=== PATIENT | female | born 1985 | race Two or more races ===

== ENCOUNTER 2023-11-25 10:25 | Observation (INO) | payer MEDICAID ==
[2023-11-25 11:22] LABS: Alanine Aminotransferase 28 U/L (7-40); Albumin 4.2 g/dL (3.2-4.8); Alkaline Phosphatase 86 U/L (46-116); Anion Gap 5 (5-15); Aspartate Aminotransferase 15 U/L (13-40); BUN/Creatinine Ratio 9.8 (10.0-20.0); Blood Urea Nitrogen 6 mg/dL (9-23); Calcium 9.5 mg/dL (8.7-10.4); Carbon Dioxide 24 mmol/L (20-30); Chloride 108 mmol/L (98-107); Glucose 92 mg/dL (74-106); Potassium 3.6 mmol/L (3.5-5.1); Sodium 137 mmol/L (136-145); Uric Acid 3.6 mg/dL (3.1-7.8)
[2023-11-25 11:23] LABS: Bilirubin, Total 0.5 mg/dL (0.2-1.0); Total Protein 6.9 g/dL (5.7-8.2)
[2023-11-25 11:25] LABS: INR 0.96 (0.9-1.15); Partial Thromboplastin Time 26.5 SEC (24.5-34.5); Prothrombin Time 10.2 sec (9.3-11.8)
[2023-11-25 11:26] LABS: Basophils # (auto) 0 10 ^3/uL (0-0.2); Basophils % (auto) 0.3 % (0.0-2.0); Eosinophils # (auto) 0 10 ^3/uL (0-0.8); Eosinophils % (auto) 0.3 % (0.0-7.0); Hemoglobin 12.6 g/dL (12.2-16.2); Lymphocytes # (auto) 1.9 10 ^3/uL (0.4-5.4); Lymphocytes % (auto) 20.1 % (10.0-50.0); Mean Corpuscular Hemoglobin 30.1 pg (28.0-32.0); Mean Corpuscular Hgb Conc. 34.1 g/dL (32.0-36.0); Mean Corpuscular Volume 88.1 fL (80.0-100.0); Monocytes # (auto) 0.4 10 ^3/uL (0-1.3); Monocytes % (auto) 4.4 % (0.0-12.0); Neutrophils % (auto) 74.9 % (37.0-80.0); Platelet Count (auto) 198 10^3/uL (140-450); Red Cell Distribution Width 15.2 % (11.8-14.3); White Blood Cell 9.3 10^3/uL (4.4-10.8)
[2023-11-25 12:16] LABS: Urine Bacteria FEW /hpf (None Seen); Urine Blood Negative /uL (Negative); Urine Clarity Turbid (Clear); Urine Color Light-Yellow (Yellow); Urine Mucus FEW (None Seen); Urine Protein, UAD Negative (Negative); Urine Specific Gravity 1.016 (1.001-1.035); Urine Urobilinogen Normal (Negative); Urine WBC 4 /hpf (0 - 5); Urine pH 6.5 (5.0-9.0)
[2023-11-25 13:03] LABS: Protein, Urine 11.4 mg/dL (0.0-11.9)
[2023-11-25 13:06] LABS: Creatinine, Urine 77.88 mg/dL (30.0-125.0); Urine Protein/Creatinine Ratio 0.15
== END 2023-11-25 13:30 | disposition home or self-care (01) ==
LOC: UNDOADMOB 10:25 → LDRP 10:25 → UNDODISOB 13:30
PROVIDERS: ADMIT Obstetrics & Gynecology; ATTEND Obstetrics & Gynecology
DX: O09.512 Supervision of elderly primigravida, second trimester (principal); Z3A.26 26 weeks gestation of pregnancy; Z79.899 Other long term (current) drug therapy
CPT/HCPCS: 36415; 59025; 80053; 81001; 81002; 82570; 84156; 84550; 85025; 85610; 85730; 94760; G0378

== ENCOUNTER → 2024-01-27 | Outpatient (CLI) | payer MEDICAID ==
[2024-01-27 10:03] LABS: Basophils # (auto) 0 10 ^3/uL (0-0.2); Basophils % (auto) 0.1 % (0.0-2.0); Eosinophils # (auto) 0.1 10 ^3/uL (0-0.8); Eosinophils % (auto) 0.6 % (0.0-7.0); Hematocrit 37.3 % (36.0-46.0); Hemoglobin 12.9 g/dL (12.2-16.2); Lymphocytes # (auto) 2.5 10 ^3/uL (0.4-5.4); Lymphocytes % (auto) 20.7 % (10.0-50.0); Mean Corpuscular Hemoglobin 29.7 pg (28.0-32.0); Mean Corpuscular Hgb Conc. 34.6 g/dL (32.0-36.0); Mean Corpuscular Volume 85.8 fL (80.0-100.0); Monocytes # (auto) 0.6 10 ^3/uL (0-1.3); Neutrophils % (auto) 73.6 % (37.0-80.0); Platelet Count (auto) 179 10^3/uL (140-450); Red Blood Cells 4.35 10^6/uL (4.0-5.20); Red Cell Distribution Width 15.3 % (11.8-14.3); White Blood Cell 12.2 10^3/uL (4.4-10.8)
[2024-01-28 08:06] LABS: RPR Non Reactive (Non Reactive)
== END | disposition home or self-care (01) ==
LOC: LAB 08:46
PROVIDERS: ATTEND Obstetrics & Gynecology
DX: Z11.3 Encounter for screening for infections with a predominantly sexual mode of transmission (principal); Z72.51 High risk heterosexual behavior
CPT/HCPCS: 36415; 85025; 86592

== ENCOUNTER 2024-02-27 10:00 | Inpatient (IN) | payer MEDICAID ==
[~2024-02-27] VITALS: Ht 162.6 cm; Wt 77.1 kg
[2024-02-27] MEDS ORDERED: PREN-96 PO (10:16)
--- NOTE | 2024-02-27 11:04 | DVH ---
BIOPHYSICAL PROFILE HISTORY: Low LUTHER TECHNIQUE: Multiple transabdominal real-time grayscale sonographic images through the gravid uterus of the fetus with duplex Doppler color flow and M-mode spectral analysis FINDINGS: BIOPHYSICAL PROFILE: breathing score: 2 movement score: 2 tone score: 2 Quantitative LUTHER score: 2 (LUTHER: 6.7 Cm. MVP 4.8 cm ) Total score: 8/8 Single live fetus in cephalic presentation. heart rate 147 beats per minute. Anterior placenta without previa or abruption IMPRESSION: 1. Biophysical profile score: 8/8 HS:Y
[2024-02-27] MEDS ORDERED: BUTORPHANOL TARTRATE 2 MG/1 ML VIAL IV PRN (11:15)
[2024-02-27] MEDS ORDERED: LIDOCAINE 2%HCL (LOCAL ANESTH.) INJ 20ML MDV IJ PRN (11:15)
[2024-02-27] MEDS: LACT. RINGERS/OXYTOCIN 20UNITS 500 ML IV ONE (11:45)
[2024-02-27 11:55] LABS: Basophils # (auto) 0 10 ^3/uL (0-0.2); Basophils % (auto) 0.4 % (0.0-2.0); Eosinophils # (auto) 0 10 ^3/uL (0-0.8); Eosinophils % (auto) 0.3 % (0.0-7.0); Hematocrit 38.5 % (36.0-46.0); Hemoglobin 12.7 g/dL (12.2-16.2); Lymphocytes # (auto) 2.1 10 ^3/uL (0.4-5.4); Lymphocytes % (auto) 17.5 % (10.0-50.0); Mean Corpuscular Hemoglobin 28.5 pg (28.0-32.0); Mean Corpuscular Volume 86.4 fL (80.0-100.0); Monocytes # (auto) 0.7 10 ^3/uL (0-1.3); Monocytes % (auto) 5.7 % (0.0-12.0); Neutrophils # (auto) 9.2 10 ^3/uL (1.6-8.6); Neutrophils % (auto) 76.1 % (37.0-80.0); Nucleated Red Blood Cells % 0.1 %; Platelet Count (auto) 211 10^3/uL (140-450); Red Blood Cells 4.46 10^6/uL (4.0-5.20); Red Cell Distribution Width 16.5 % (11.8-14.3); White Blood Cell 12.1 10^3/uL (4.4-10.8)
[2024-02-27 11:58] LABS: Urine Bacteria FEW /hpf (None Seen); Urine Blood Negative /uL (Negative); Urine Clarity Turbid (Clear); Urine Color Light-Yellow (Yellow); Urine Mucus FEW (None Seen); Urine Protein, UAD TRACE (Negative); Urine Specific Gravity 1.016 (1.001-1.035); Urine Urobilinogen Normal (Negative); Urine WBC 5 /hpf (0 - 5)
[2024-02-27 12:10] LABS: INR 0.92 (0.9-1.15); Partial Thromboplastin Time 24.1 SEC (24.5-34.5); Prothrombin Time 9.8 sec (9.3-11.8)
[2024-02-27 12:15] LABS: Alanine Aminotransferase 14 U/L (7-40); Albumin 3.7 g/dL (3.2-4.8); Anion Gap 8 (5-15); Aspartate Aminotransferase 19 U/L (13-40); BUN/Creatinine Ratio 13.3 (10.0-20.0); Calcium 9.6 mg/dL (8.7-10.4); Carbon Dioxide 21 mmol/L (20-31); Glucose 83 mg/dL (74-106); Sodium 138 mmol/L (136-145)
[2024-02-27 12:16] LABS: Bilirubin, Total 0.4 mg/dL (0.2-1.0); Total Protein 6.3 g/dL (5.7-8.2)
[2024-02-27 12:31] LABS: Opiate Scree,Urine Neg (NEGATIVE)
[2024-02-27 12:32] LABS: Amphetamine Screen, Urine Neg (NEGATIVE); Barbiturate Scree,Urine Neg (NEGATIVE); Benzodiazephine Screen, Urine Neg (NEGATIVE); Cannabinoid Screen, Urine Neg (NEGATIVE); Cocaine Screen, Urine Neg (NEGATIVE); Phencyclidine Screen, Urine Neg (NEGATIVE)
[2024-02-27 12:34] LABS: Alkaline Phosphatase 285 U/L (46-116); Blood Urea Nitrogen 8 mg/dL (9-23); Chloride 109 mmol/L (98-107)
[2024-02-27 13:24] LABS: Uric Acid 4.8 mg/dL (3.1-7.8)
[2024-02-27] MEDS: DINOPROSTONE 10MG VAG SUPP PV ONE (13:53)
--- NOTE | 2024-02-27 16:15 | DVHHP2 ---
OB CC & HPI Date Date of Admission: Feb 27, 2024 Patient Identification: : 1 Para: 0 EGA: 39.3 Chief Complaints: Reason for admission: induction of labor Indication for induction: other (Decreasing LUTHER, denies PROM. Gestational HTN) History of Present Complaints 38y G1Po IUP 39+ wk. Seen on L&D for NST/BPP/LUTHER due to gestational HTN Patient is asymptomatic, denies current headache, visual changes or edema Howvever, she has had moderate headaches off and on during the week. Her LUTHER has progressively been decreasing over the last week and it is now at 6.7cm She denies LOF or PROM, no vaginal bleeding. Denies any complications or IUGR. She has had good PNL care w/ Dr. Bre garcia Past Medical History Cardiac: No pertinent Hx Pulmonary: No pertinent Hx Central Nervous System: No pertinent Hx GI: No pertinent Hx Hemotology/Oncology: No pertinent Hx Hepatobiliary: No pertinent Hx Psychiatric: No pertinent Hx Musculoskeletal: No pertinent Hx Rheumotologic: No pertinent Hx Infectious Disease: No peritnent Hx ENT: No pertinent Hx Renal/: No pertinent Hx Endocrine: No pertinent Hx Dermatology: No pertinent Hx Past Surgical History: No pertinent Hx OB History OB History Care: Good Care Ultrasounds: Normal mid trimester US Obstetrical Complications: None, Gestational Hypertension Medical Complications: None Allergies: Coded Allergies: Shellfish Allergy (Verified Allergy, Severe, 02/27/24) Tuna Flavor (Verified Allergy, Severe, anaphylaxis, 02/27/24) Home Meds Reported Medications Vit W/ Ferrous Fumara ( One Daily) Daily Tab, 1 TAB PO DAILY, #90 TAB 3 Refills 02/27/24 Current Medications Current Medications Medications (Trade) Dose Ordered Sig/Sukhdev Route PRN Reason Start Time Stop Time Status Last Admin Lactated Ringer's 1,000 ml @ 125 mls/hr Q8H IV 02/27/24 11:15 Witch Ninfa (Tucks) 1 pad PRN PRN TOP PERINEAL AREA DISCOMFORT 02/27/24 11:15 Sodium Lauryl Sulfate (Phisoderm) 240 ml PRN PRN TOP PERINEAL AREA DISCOMFORT 02/27/24 11:15 Benzocaine (Dermoplast) 1 applic PRN PRN TOP PERINEAL AREA DISCOMFORT 02/27/24 11:15 Butorphanol Tartrate (Stadol Injection) 2 mg Q4HPRN PRN IV SEVERE PAIN (7-10 PAIN SCALE) 02/27/24 11:15 Lidocaine HCl (Xylocaine) 40 ml ONCE PRN IJ PERINEAL AREA DISCOMFORT 02/27/24 11:15 Family & Social History Family/Social History Blood Type: O+ Rubella: immune RPR/VDRL: Negative GBS Status: Negative HBsAG: Negative Review of Systems Constitutional: No symptom reported Ears, Nose, & Throat: No symptom reported Eyes: No symptom reported Pulmonary/Respiratory: No symptom reported Cardiovascular: No symptom reported Gastrointestinal: No symptom reported Genitourinary: No symptom reported Musculoskeletal: No symptom reported Skin: No symptom reported Psychiatric: No symptom reported Endocrine: No symptom reported Hemotologic/Lymphatic: No symptom reported OB Admission Exam Physical Exam HEENT: TMs Normal, Fontanelles Normal, Nasal Mucosa Normal, Eyes non-injected, Oropharynx Normal, PERRLA, Moist Membranes, EOMI Heart: Rhythm Normal Lungs: Clear Abdomen: Non tender Extremities: Normal Reflexes: Normal Cervical Dilatation: None Effacement: 50% Station: -3 Membranes: Intact Heart Rate: 140's Accelerations: Accelerations Present Decelerations: No Decelerations [facility] Variability: Average (6-25) Contractions on Admission: 6-10 Minutes Apart Intensity: Mild OB Plan Plan Admitting Diagnosis: 1. Term IUP G1O, 39+ week 2. Gestational HTN with low LUTHER (6.7 cm) 3. Medically indicated Induction of Labor 4. AMA 5. GBS neg Induction Methd: Cervidal protocol Other Plan: Induction of labor recommended due to elevated BP's at term and decreasing LUTHER w/out PROM R/B/A reviewed w/ patient and infromed consent obtained, agrees to proceed with delivery Indications for C/S and/ or vacuum delivery discussed Will Observe BP's closely in labor, PIH are negative Cytotec induction per protocol, medicine placed in PV fornix, expectations and plan reviewed w/ patient in detail. DAY BELCHER DO Feb 27, 2024 16:15
[2024-02-27 18:28] LABS: Protein, Urine 20.9 mg/dL (1-14)
[2024-02-27 18:31] LABS: Creatinine, Urine 71.72 mg/dL (30.0-125.0); Urine Protein/Creatinine Ratio 0.29
[2024-02-27] MEDS: LACTATED RINGER'S 1,000 ML IV SCH (20:05)
[2024-02-27] MEDS: DERMOPLAST 60ML BOTTLE TOP PRN (20:07)
[2024-02-27] MEDS: WITCH HAZEL-GLYCERIN PAD TOP PRN (20:07)
[2024-02-27] MEDS: PHISODERM TOP SOLN 240ML BTL TOP PRN (20:08)
--- NOTE | 2024-02-27 21:23 | DVHPN2 ---
OB Labor Progress Note Date and Time Seen Date Seen: Feb 27, 2024 Time Seen: 21:21 Subjective Patient reports: No new complaints, Feels better Subjective Comment Denies headache currently, no scotomata or epigastric pain. Objective Vital Signs Afeb some elevated BP's Monitoring Method Monitoring Method: External Heart Rate Heart Rate Baseline: 140 Heart Rate Variability: Moderate Presence of FHR Accelerations: Yes Presence of FHR Decelerations: No Contractions Contractions Frequency: Occasional Contractions Intensity: Mild Membranes Membranes: Intact Vaginal Exam Vag Exam Deferred: Yes Medications Medications - Pitocin: No Medication - Epidural: No Medication - Other Vaginal Cervidil Lab Results Lab Results Current Medications Medications (Trade) Dose Ordered Sig/Sukhdev Start Time Stop Time Status Last Admin Dose Admin Lactated Ringer's 1,000 ml @ 125 mls/hr Q8H 02/27/24 11:15 02/27/24 20:05 125 MLS/HR Witch Ninfa (Tucks) 1 pad PRN PRN 02/27/24 11:15 02/27/24 20:07 1 PAD Sodium Lauryl Sulfate (Phisoderm) 240 ml PRN PRN 02/27/24 11:15 02/27/24 20:08 240 ML Benzocaine (Dermoplast) 1 applic PRN PRN 02/27/24 11:15 02/27/24 20:07 1 APPLIC Butorphanol Tartrate (Stadol Injection) 2 mg Q4HPRN PRN 02/27/24 11:15 Lidocaine HCl (Xylocaine) 40 ml ONCE PRN 02/27/24 11:15 Oxytocin 500 ml @ 999 mls/hr Q31M ONCE 02/27/24 11:15 02/27/24 11:45 DC Oxytocin 500 ml @ 125 mls/hr Q4H ONCE 02/27/24 11:45 02/27/24 15:44 DC Dinoprostone (Cervidil Suppository) 1 supp ONCE ONCE 02/27/24 11:15 02/27/24 11:36 DC 02/27/24 13:53 1 SUPP Laboratory Tests Test 02/27/24 11:40 02/27/24 11:33 Range/Units Urine Color Light-yellow Yellow Urine Clarity Turbid H Clear Urine pH 7.0 5.0-9.0 Urine Specific [place] 1.016 1.001-1.035 Urine Protein Trace H Negative Urine Ketones Negative Negative Urine Blood Negative Negative /uL Urine Nitrite Negative Negative Urine Bilirubin Negative Negative Urine Urobilinogen Normal Negative mg/dL Urine Leukocyte Esterase Trace Negative /uL Urine RBC 2 0 - 4 /hpf Urine WBC 5 0 - 5 /hpf Urine Squamous Epithelial Cells Mod <5 /hpf Urine Bacteria Few H None Seen /hpf Urine Mucus Few None Seen Urine Creatinine 71.72 30.0-125.0 mg/dL Urine Protein/Creatinine Ratio 0.29 Urine Glucose Normal Normal mg/dL Urine Total Protein 20.9 H 1-14 mg/dL Urine Opiates Screen Neg NEGATIVE Urine Fentanyl Screen Neg NEGATIVE Urine Barbiturates Screen Neg NEGATIVE Urine Phencyclidine Screen Neg NEGATIVE Urine Amphetamines Screen Neg NEGATIVE Urine Benzodiazepines Screen Neg NEGATIVE Urine Cocaine Screen Neg NEGATIVE Urine Cannabinoids Screen Neg NEGATIVE White Blood Count 12.1 H 4.4-10.8 10^3/uL Red Blood Count 4.46 4.0-5.20 10^6/uL Hemoglobin 12.7 12.2-16.2 g/dL Hematocrit 38.5 36.0-46.0 % Mean Corpuscular Volume 86.4 80.0-100.0 fL Mean Corpuscular Hemoglobin 28.5 28.0-32.0 pg Mean Corpuscular Hemoglobin Concent 33.0 32.0-36.0 g/dL Red Cell Distribution Width 16.5 H 11.8-14.3 % Platelet Count 211 140-450 10^3/uL Mean Platelet Volume 9.7 6.9-10.8 fL Neutrophils (%) (Auto) 76.1 37.0-80.0 % Lymphocytes (%) (Auto) 17.5 10.0-50.0 % Monocytes (%) (Auto) 5.7 0.0-12.0 % Eosinophils (%) (Auto) 0.3 0.0-7.0 % Basophils (%) (Auto) 0.4 0.0-2.0 % Neutrophils # (Auto) 9.2 H 1.6-8.6 10 ^3/uL Lymphocytes # (Auto) 2.1 0.4-5.4 10 ^3/uL Monocytes # (Auto) 0.7 0-1.3 10 ^3/uL Eosinophils # (Auto) 0 0-0.8 10 ^3/uL Basophils # (Auto) 0 0-0.2 10 ^3/uL Nucleated Red Blood Cells 0.1 % Prothrombin Time 9.8 9.3-11.8 sec Prothrombin Time INR 0.92 0.9-1.15 Activated Partial Thromboplast Time 24.1 L 24.5-34.5 SEC Sodium Level 138 136-145 mmol/L Potassium Level 4.0 3.5-5.1 mmol/L Chloride Level 109 H 98-107 mmol/L Carbon Dioxide Level 21 20-31 mmol/L Anion Gap 8 5-15 Blood Urea Nitrogen 8 L 9-23 mg/dL Creatinine 0.60 0.550-1.02 mg/dL Glomerular Filtration Rate Calc 118 >90 mL/min BUN/Creatinine Ratio 13.3 10.0-20.0 Serum Glucose 83 74-106 mg/dL Uric Acid 4.8 3.1-7.8 mg/dL Calcium Level 9.6 8.7-10.4 mg/dL Total Bilirubin 0.4 0.2-1.0 mg/dL Aspartate Amino Transferase (AST) 19 13-40 U/L Alanine Aminotransferase (ALT) 14 7-40 U/L Alkaline Phosphatase 285 H 46-116 U/L Total Protein 6.3 5.7-8.2 g/dL Albumin 3.7 3.2-4.8 g/dL Rapid Plasma Reagin Pending Treponema pallidum Ab (TP-PA) Pending Hepatitis B Surface Antigen Pending Hepatitis C Antibody Negative Negative Rubella IgG Antibody Pending Consulting with Consulting with: None Assessment Assessment Term IUP with gestational HTN vs mild pre-eclampsia AMA Decreasing borderline low LUTHER 6.7 cm Plan: Continue labor induction and BP monitoring Cervidil to be removed after 12 hr from insertion, or sooner , for standard indications Plan Plan discussed with: Patient, Other (RN) DAY BELCHER DO Feb 27, 2024 21:23
[2024-02-28] MEDS ORDERED: TERBUTALINE SULFATE 1 MG/ML 1ML VIAL SC PRN ×2 (02:30→12:15)
[2024-02-28] MEDS ORDERED: NALBUPHINE HCL 10 MG/1ml INJECTION IV PRN (02:30)
[2024-02-28] MEDS ORDERED: ONDANSETRON HCL 4 MG/2 ML VIAL IV PRN (02:30)
[2024-02-28] MEDS: miSOPROStol 50 MCG per PRE-CUT 1/2 TAB PO PRN (03:30)
--- NOTE | 2024-02-28 07:08 | DVHPN2 ---
OB Labor Progress Note Date and Time Seen Date Seen: Feb 28, 2024 Time Seen: 07:06 Subjective Patient reports: No new complaints Subjective Comment Received oral Cytotec after Cervidil was removed Mild to moderate contractions are felt Objective Vital Signs Afeb BP's stable Monitoring Method Monitoring Method: External Heart Rate Heart Rate Baseline: 130 Heart Rate Variability: Moderate Presence of FHR Accelerations: Yes Presence of FHR Decelerations: No Contractions Contractions Frequency: Occasional Contractions Intensity: Moderate Contractions Resting Tone: Relaxed Membranes Membranes: Intact Vaginal Exam Vag Exam Deferred: Yes Medications Medications - Pitocin: No Medication - Epidural: No Lab Results Lab Results Current Medications Medications (Trade) Dose Ordered Sig/Sukhdev Start Time Stop Time Status Last Admin Dose Admin Lactated Ringer's 1,000 ml @ 125 mls/hr Q8H 02/27/24 11:15 02/28/24 04:46 125 MLS/HR Witch Ninfa (Tucks) 1 pad PRN PRN 02/27/24 11:15 02/27/24 20:07 1 PAD Sodium Lauryl Sulfate (Phisoderm) 240 ml PRN PRN 02/27/24 11:15 02/27/24 20:08 240 ML Benzocaine (Dermoplast) 1 applic PRN PRN 02/27/24 11:15 02/27/24 20:07 1 APPLIC Lidocaine HCl (Xylocaine) 40 ml ONCE PRN 02/27/24 11:15 Oxytocin 500 ml @ 999 mls/hr Q31M ONCE 02/27/24 11:15 02/27/24 11:45 DC Oxytocin 500 ml @ 125 mls/hr Q4H ONCE 02/27/24 11:45 02/27/24 15:44 DC Dinoprostone (Cervidil Suppository) 1 supp ONCE ONCE 02/27/24 11:15 02/27/24 11:36 DC 02/27/24 13:53 1 SUPP Nalbuphine HCl (Nubain) 10 mg Q4HP PRN 02/28/24 02:30 Misoprostol (Cytotec) 50 mcg Q4HPRN PRN 02/28/24 02:30 02/28/24 03:30 50 MCG Terbutaline Sulfate (Brethine Inj) 0.25 mg ONCE PRN 02/28/24 02:30 Ondansetron HCl (Zofran) 4 mg Q6HPRN PRN 02/28/24 02:30 Laboratory Tests Test 02/27/24 11:40 02/27/24 11:33 Range/Units Urine Color Light-yellow Yellow Urine Clarity Turbid H Clear Urine pH 7.0 5.0-9.0 Urine Specific [place] 1.016 1.001-1.035 Urine Protein Trace H Negative Urine Ketones Negative Negative Urine Blood Negative Negative /uL Urine Nitrite Negative Negative Urine Bilirubin Negative Negative Urine Urobilinogen Normal Negative mg/dL Urine Leukocyte Esterase Trace Negative /uL Urine RBC 2 0 - 4 /hpf Urine WBC 5 0 - 5 /hpf Urine Squamous Epithelial Cells Mod <5 /hpf Urine Bacteria Few H None Seen /hpf Urine Mucus Few None Seen Urine Creatinine 71.72 30.0-125.0 mg/dL Urine Protein/Creatinine Ratio 0.29 Urine Glucose Normal Normal mg/dL Urine Total Protein 20.9 H 1-14 mg/dL Urine Opiates Screen Neg NEGATIVE Urine Fentanyl Screen Neg NEGATIVE Urine Barbiturates Screen Neg NEGATIVE Urine Phencyclidine Screen Neg NEGATIVE Urine Amphetamines Screen Neg NEGATIVE Urine Benzodiazepines Screen Neg NEGATIVE Urine Cocaine Screen Neg NEGATIVE Urine Cannabinoids Screen Neg NEGATIVE White Blood Count 12.1 H 4.4-10.8 10^3/uL Red Blood Count 4.46 4.0-5.20 10^6/uL Hemoglobin 12.7 12.2-16.2 g/dL Hematocrit 38.5 36.0-46.0 % Mean Corpuscular Volume 86.4 80.0-100.0 fL Mean Corpuscular Hemoglobin 28.5 28.0-32.0 pg Mean Corpuscular Hemoglobin Concent 33.0 32.0-36.0 g/dL Red Cell Distribution Width 16.5 H 11.8-14.3 % Platelet Count 211 140-450 10^3/uL Mean Platelet Volume 9.7 6.9-10.8 fL Neutrophils (%) (Auto) 76.1 37.0-80.0 % Lymphocytes (%) (Auto) 17.5 10.0-50.0 % Monocytes (%) (Auto) 5.7 0.0-12.0 % Eosinophils (%) (Auto) 0.3 0.0-7.0 % Basophils (%) (Auto) 0.4 0.0-2.0 % Neutrophils # (Auto) 9.2 H 1.6-8.6 10 ^3/uL Lymphocytes # (Auto) 2.1 0.4-5.4 10 ^3/uL Monocytes # (Auto) 0.7 0-1.3 10 ^3/uL Eosinophils # (Auto) 0 0-0.8 10 ^3/uL Basophils # (Auto) 0 0-0.2 10 ^3/uL Nucleated Red Blood Cells 0.1 % Prothrombin Time 9.8 9.3-11.8 sec Prothrombin Time INR 0.92 0.9-1.15 Activated Partial Thromboplast Time 24.1 L 24.5-34.5 SEC Sodium Level 138 136-145 mmol/L Potassium Level 4.0 3.5-5.1 mmol/L Chloride Level 109 H 98-107 mmol/L Carbon Dioxide Level 21 20-31 mmol/L Anion Gap 8 5-15 Blood Urea Nitrogen 8 L 9-23 mg/dL Creatinine 0.60 0.550-1.02 mg/dL Glomerular Filtration Rate Calc 118 >90 mL/min BUN/Creatinine Ratio 13.3 10.0-20.0 Serum Glucose 83 74-106 mg/dL Uric Acid 4.8 3.1-7.8 mg/dL Calcium Level 9.6 8.7-10.4 mg/dL Total Bilirubin 0.4 0.2-1.0 mg/dL Aspartate Amino Transferase (AST) 19 13-40 U/L Alanine Aminotransferase (ALT) 14 7-40 U/L Alkaline Phosphatase 285 H 46-116 U/L Total Protein 6.3 5.7-8.2 g/dL Albumin 3.7 3.2-4.8 g/dL Rapid Plasma Reagin Pending Treponema pallidum Ab (TP-PA) Pending Hepatitis B Surface Antigen Pending Hepatitis C Antibody Negative Negative Rubella IgG Antibody Pending Assessment Assessment Term IUP mild pre-eclampsia Induction of labor Plan Plan Continue cytotec induction of labor Continue BP observation Care endorsed to on coming Manager Business Banking MD insulation worker apprentice Dr. Womack Plan discussed with: Patient DAY BELCHER DO Feb 28, 2024 07:08
[2024-02-28 08:06] LABS: RPR Non Reactive (Non Reactive)
[2024-02-28] MEDS: LIDOCAINE HCL 2 %PF INJ 10ML AMP IJ ONE (09:45)
[2024-02-28] MEDS ORDERED: NALOXONE HCL 0.4 MG/ML VIAL IV ONE (09:45)
[2024-02-28] MEDS: ePHEDrine SULFATE 50 MG/ML AMP IV ONE (09:45)
[2024-02-28] MEDS: fentaNYL CITRATE 100 MCG/2 ML VL IV ONE (10:29)
[2024-02-28] MEDS: LACTATED RINGER'S 1,000 ML IV ONE (10:30)
[2024-02-28] MEDS: ROPIVACAINE HCL 200 ML ONE (10:31)
--- NOTE | 2024-02-28 10:56 | EPIDURAL ---
Anesthesia Procedural Note - Epidural Informed consent obtained?: Yes Medication Administered: Fentanyl 100 mcg Spinal level of insertion: L4-L5 Test dose of lidocaine & Epine: Negative Infusion started: Yes Start time: 09:55 End time: 10:25 Procedure description Procedure description: Called for labor analgesia. History taken, chart reviewed, patient examined a 0950. Patient is here for induction of labor for PIH at 38+ weeks gestation. Patient reports sensitivity to 'novacaine'. The incident occurred 20 years go at the dentist while being topicalized for dental work. She felt jittery... 'like having too much caffeine' and the dentist told her that she must be allergic to novacaine. She did not develop any additional symptoms, no rash, abdominal pain, wheezing, etc. I explained to the patient that it was very likely that her reaction was a result of the epi combined with the local anesthetic and not allergy-related at all. Informed consent for CSE obtained. The role of both plain lido to topicalize the skin and lido with epi as a test dose for the epidural catheter explained to the patient. Patient agrees to proceed with CSE. Siting position, sterile prep and drape at 0957 (BP 159/100 HR 120 spO2 99). L4-5 space infiltrated with 1% lido. No redness or welting noted at the site throughout procedure. Epidural needle placed with JAMES at 6cm. 25G spinal needle +clear CSF at 0959 (BP 146/90 HR 106 spO2 99). 15mcg fentanyl given IT. Epidural catheter secured at 12cm. Aspiration and test dose (3cc1.5% lido with epi) negative at 1000 (BP 145/73 HR 104 spO2 99). 85mcg fentanyl given via epidural at 1005. Patient reports good pain relief (BP 145/80 HR 100 spO2 99). 0.2% ropivacaine infusion started at 1018 (BP 137/99 HR 93 spO2 99). No signs of allergic reaction noted. Will follow as needed. VELVET LARSON MD Feb 28, 2024 10:56
[2024-02-28] MEDS: LACT. RINGERS/OXYTOCIN 20UNITS 1,000 ML IV SCH (12:43)
--- NOTE | 2024-02-28 17:23 | LDN2 ---
Labor and Delivery Note Date 02/28/24 Age 38 1 Para 0 AB 0 EGA 39 4/7 Diagnosis Labor/ Oligo Vaginal Delivery: VTX Placenta: Spontaneous Sex: Male Apgars 8/9 Nuchal Cord Transected: No Amniotic Fluid: Clear Anesthesia Epidural Episiotomy: No Extension: Yes (2nd midline posterior) Repaired with 2-0n Chromic EBL 300cc Labs Laboratory Tests 02/27/24 11:33: Blood Bank 02/27/24 11:33: Blood Type O POSITIVE Complications none Conditions stable Payroll And Benefits Analyst non present MIRTHA HOLT DO Feb 28, 2024 17:23
[2024-02-28] MEDS: LACT. RINGERS/OXYTOCIN 20UNITS 500 ML IV ONE (19:04)
[2024-02-28] MEDS ORDERED: ONDANSETRON ODT 4 MG TAB PO PRN (21:30)
[2024-02-28 21:50] VITALS: BP 136/84; PULSE 115; RESP 20
[2024-02-28] MEDS ORDERED: AMMONIA 0.33 ML INHALANT IN ONE (22:03)
[2024-02-28] MEDS: IBUPROFEN 800 MG TAB PO SCH (22:07)
[2024-02-28] MEDS: DOCUSATE SOD 100 MG CAP PO SCH (22:07)
[2024-02-28] MEDS: AMMONIA 0.33 ML INHALANT IN ONE (22:15)
[2024-02-28 23:00] VITALS: BP 132/79; PULSE 104; RESP 20; TEMP 98.5; O2SAT 96
[2024-02-29 03:00] VITALS: BP 132/74; PULSE 98; RESP 18; TEMP 97.9; O2SAT 100
[2024-02-29 07:00] VITALS: BP 119/69; PULSE 84; PULSE 87; RESP 16; RESP 18; TEMP 98.5; O2SAT 98
--- NOTE | 2024-02-29 09:00 | DVHPN2 ---
Chief Complaints Patient reports: No new complaints, Feels better Nursing reports: No new complaints, No abdominal pain, No chest pain, No dizziness, No cough Objective Vitals Vital Signs Date Time Temp Pulse Resp B/P (MAP) Pulse Ox O2 Delivery O2 Flow Rate FiO2 02/29/24 07:00 98.5 87 18 119/69 (86) 98 98.5 02/29/24 07:00 Room Air Medications Current Medications Medications (Trade) Dose Ordered Sig/Sukhdev Route PRN Reason Start Time Stop Time Status Last Admin Acetaminophen (Tylenol Tablet) 650 mg Q4HP PRN PO MILD PAIN (1-3 PAIN SCALE) 02/28/24 21:30 Docusate Sodium (Colace Capsule) 200 mg HS PO 02/28/24 22:00 02/28/24 22:07 Ibuprofen (Motrin Tablet) 800 mg Q6HR PO 02/29/24 00:00 02/28/24 22:07 Ondansetron HCl (Zofran Po) 4 mg Q4HPRN PRN PO NAUSEA / VOMITING 02/28/24 21:30 Terbutaline Sulfate (Brethine Inj) 0.25 mg ONCE PRN SC Uterine tachysystole 02/28/24 12:15 Cancel General: Normal Head/Eyes: Normal Neck: Normal Lungs: Normal Cardiovascular: Normal Abdominal: Normal Musculoskeletal: Normal Extremities: Normal Skin: Normal Neurological: Normal Studies Laboratory Tests 02/27/24 11:33 Test 02/27/24 11:33 Range/Units Serum Glucose 83 74-106 mg/dL Ass/Plan Assessment Post Day 1 stable improved Plan Advance care MIRTHA HOLT DO Feb 29, 2024 09:00
[2024-02-29 11:00] VITALS: BP 123/73; PULSE 109; RESP 18; TEMP 97.7; O2SAT 98
[2024-02-29 14:59] VITALS: BP 130/76; PULSE 98; RESP 18; TEMP 98.4; O2SAT 98
[2024-02-29 19:20] VITALS: BP 130/79; PULSE 98; RESP 16; TEMP 97.8; O2SAT 97
[2024-02-29 23:09] VITALS: BP 120/76; PULSE 100; RESP 18; TEMP 98.2; O2SAT 97
[2024-02-29] MEDS: ACETAMINOPHEN 325 MG TAB PO PRN (23:19)
[2024-03-01 03:00] VITALS: BP 118/81; PULSE 89; RESP 16; TEMP 97.8; O2SAT 98
--- NOTE | 2024-03-01 06:37 | DVHPN2 ---
Chief Complaints Patient reports: No new complaints, Feels better, Other (post ambulating , minimal lochia, tolerating diet , passing flatus) Nursing reports: No new complaints, No abdominal pain, No chest pain, No dizziness, No cough Objective Vitals Vital Signs Date Time Temp Pulse Resp B/P (MAP) Pulse Ox O2 Delivery O2 Flow Rate FiO2 03/01/24 03:00 97.8 89 16 118/81 (93) 98 97.8 02/29/24 19:00 Room Air General: Normal Head/Eyes: Normal Neck: Normal Lungs: Normal Cardiovascular: Normal Abdominal: Normal (uterus firm 14 week size) Musculoskeletal: Normal Extremities: Normal Skin: Normal Neurological: Normal Studies Laboratory Tests 02/27/24 11:33 Test 02/27/24 11:33 Range/Units Serum Glucose 83 74-106 mg/dL Ass/Plan Assessment Post Day 2 stable improved Plan supportive care MIRTHA HOLT DO Mar 01, 2024 06:37
[2024-03-01 07:00] VITALS: BP 125/78; PULSE 98; RESP 18; TEMP 98.1; O2SAT 97
--- NOTE | 2024-03-01 10:42 | DVHDS2 ---
Discharge Summary Date of Admission Feb 27, 2024 at 11:08 Date of Discharge: Mar 01, 2024 Admitting Diagnosis Term , elevated BP's Borderline LUTHER (oligohydramnios) Labs/Diagnostic Data: Laboratory Results Test 02/27/24 11:40 02/27/24 11:33 Urine Color Light-yellow (Yellow) Urine Clarity Turbid (Clear) Urine pH 7.0 (5.0-9.0) Urine Specific [place] 1.016 (1.001-1.035) Urine Protein Trace (Negative) Urine Ketones Negative (Negative) Urine Blood Negative /uL (Negative) Urine Nitrite Negative (Negative) Urine Bilirubin Negative (Negative) Urine Urobilinogen Normal mg/dL (Negative) Urine Leukocyte Esterase Trace /uL (Negative) Urine RBC 2 /hpf (0 - 4) Urine WBC 5 /hpf (0 - 5) Urine Squamous Epithelial Cells Mod /hpf (<5) Urine Bacteria Few /hpf (None Seen) Urine Mucus Few (None Seen) Urine Creatinine 71.72 mg/dL (30.0-125.0) Urine Protein/Creatinine Ratio 0.29 Urine Glucose Normal mg/dL (Normal) Urine Total Protein 20.9 mg/dL (1-14) Urine Opiates Screen Neg (NEGATIVE) Urine Fentanyl Screen Neg (NEGATIVE) Urine Barbiturates Screen Neg (NEGATIVE) Urine Phencyclidine Screen Neg (NEGATIVE) Urine Amphetamines Screen Neg (NEGATIVE) Urine Benzodiazepines Screen Neg (NEGATIVE) Urine Cocaine Screen Neg (NEGATIVE) Urine Cannabinoids Screen Neg (NEGATIVE) White Blood Count 12.1 10^3/uL (4.4-10.8) Red Blood Count 4.46 10^6/uL (4.0-5.20) Hemoglobin 12.7 g/dL (12.2-16.2) Hematocrit 38.5 % (36.0-46.0) Mean Corpuscular Volume 86.4 fL (80.0-100.0) Mean Corpuscular Hemoglobin 28.5 pg (28.0-32.0) Mean Corpuscular Hemoglobin Concent 33.0 g/dL (32.0-36.0) Red Cell Distribution Width 16.5 % (11.8-14.3) Platelet Count 211 10^3/uL (140-450) Mean Platelet Volume 9.7 fL (6.9-10.8) Neutrophils (%) (Auto) 76.1 % (37.0-80.0) Lymphocytes (%) (Auto) 17.5 % (10.0-50.0) Monocytes (%) (Auto) 5.7 % (0.0-12.0) Eosinophils (%) (Auto) 0.3 % (0.0-7.0) Basophils (%) (Auto) 0.4 % (0.0-2.0) Neutrophils # (Auto) 9.2 10 ^3/uL (1.6-8.6) Lymphocytes # (Auto) 2.1 10 ^3/uL (0.4-5.4) Monocytes # (Auto) 0.7 10 ^3/uL (0-1.3) Eosinophils # (Auto) 0 10 ^3/uL (0-0.8) Basophils # (Auto) 0 10 ^3/uL (0-0.2) Nucleated Red Blood Cells 0.1 % Prothrombin Time 9.8 sec (9.3-11.8) Prothrombin Time INR 0.92 (0.9-1.15) Activated Partial Thromboplast Time 24.1 SEC (24.5-34.5) Sodium Level 138 mmol/L (136-145) Potassium Level 4.0 mmol/L (3.5-5.1) Chloride Level 109 mmol/L (98-107) Carbon Dioxide Level 21 mmol/L (20-31) Anion Gap 8 (5-15) Blood Urea Nitrogen 8 mg/dL (9-23) Creatinine 0.60 mg/dL (0.550-1.02) Glomerular Filtration Rate Calc 118 mL/min (>90) BUN/Creatinine Ratio 13.3 (10.0-20.0) Serum Glucose 83 mg/dL (74-106) Uric Acid 4.8 mg/dL (3.1-7.8) Calcium Level 9.6 mg/dL (8.7-10.4) Total Bilirubin 0.4 mg/dL (0.2-1.0) Aspartate Amino Transferase (AST) 19 U/L (13-40) Alanine Aminotransferase (ALT) 14 U/L (7-40) Alkaline Phosphatase 285 U/L (46-116) Total Protein 6.3 g/dL (5.7-8.2) Albumin 3.7 g/dL (3.2-4.8) Rapid Plasma Reagin Non reactive (Non Reactive) Hepatitis B Surface Antigen Negative (Negative) Hepatitis C Antibody Negative (Negative) Other Laboratory Tests 02/27/24 11:33 Brief Hx & Hospital Course: Induction of labor, Uncomplicated labor and delivery, normal PP course BP's normalized PIH labs negative Operations or Procedures Condition at Discharge: Stable Final Diagnosis/Problems List Term , delivered Secondary Diagnosis: Oligohydramnios Discharge Disposition: Home Discharge Instruct/Medications Diet: Regular Activity: Light activity Activity comment: Pelvic rest x 6 wk Follow Up/Referral: [address] Johnson Discharge Statement: "Patient was advised to return to the ER or call 911 if any headaches, dizziness, shortness of breath, chest pain, abdominal pain, bleeding, fevers, or worsening of medical condition. Patient was counseled about treatment plan, medications, possible side effects, patientverbalized understanding. All questions were answered to the best of my ability. This discharge took greater then 30 minutes in planning, reviewing documentation, counseling the patient, and discussing with other team members." ASSESSMENT ASSESSMENT Assessment DAY BELCHER DO Mar 01, 2024 10:42
[2024-03-01 11:00] VITALS: BP 126/82; PULSE 108; RESP 18; TEMP 98.4; O2SAT 97
[2024-03-02 03:06] LABS: Rubella Antibodies, IgG 4.19 index (Immune >0.99)
== END 2024-03-01 14:36 | disposition home or self-care (01) | DRG 560 ==
LOC: LDRP 10:00 → OBSVTOIN 11:08
PROVIDERS: ADMIT Obstetrics & Gynecology; ATTEND Obstetrics & Gynecology
PROC: 10E0XZZ Delivery of Products of Conception, External Approach (ICD-10-PCS; principal; 2024-02-28)
PROC: 3E0DXGC Introduction of Other Therapeutic Substance into Mouth and Pharynx, External Approach (ICD-10-PCS; 2024-02-28)
PROC: 0KQM0ZZ Repair Perineum Muscle, Open Approach (ICD-10-PCS; 2024-02-28)
PROC: 3E0R3BZ Introduction of Anesthetic Agent into Spinal Canal, Percutaneous Approach (ICD-10-PCS; 2024-02-28)
PROC: 00HU33Z Insertion of Infusion Device into Spinal Canal, Percutaneous Approach (ICD-10-PCS; 2024-02-28)
DX: O13.4 Gestational [pregnancy-induced] hypertension without significant proteinuria, complicating childbirth (principal); Z37.0 Single live birth; O41.03X0 Oligohydramnios, third trimester, not applicable or unspecified; O14.04 Mild to moderate pre-eclampsia, complicating childbirth; O70.1 Second degree perineal laceration during delivery; Z3A.39 39 weeks gestation of pregnancy; Z91.013 Allergy to seafood
CPT/HCPCS: 36415; 59409; 62282; 76818; 80053; 80307; 81001; 82570; 84156; 84550; 85025; 85610; 85730; 86592; 86762; 86780; 86803; 86850; 86900; 86901; 87340; 94760; 96360; 96361; 96365; 96366; G0378; J2590

== ENCOUNTER → 2024-05-27 | Outpatient (CLI) | payer MEDICAID ==
[~2024-05-27] MED LIST: PREN-96 PO
[2024-05-27 09:28] LABS: Basophils # (auto) 0 10 ^3/uL (0-0.2); Eosinophils # (auto) 0.1 10 ^3/uL (0-0.8); Platelet Count (auto) 269 10^3/uL (140-450)
[2024-05-27 09:32] LABS: Basophils % (auto) 0.3 % (0.0-2.0); Eosinophils % (auto) 1.2 % (0.0-7.0); Hematocrit 38.1 % (36.0-46.0); Hemoglobin 12.5 g/dL (12.2-16.2); Lymphocytes # (auto) 2.9 10 ^3/uL (0.4-5.4); Lymphocytes % (auto) 37.6 % (10.0-50.0); Mean Corpuscular Hemoglobin 26.5 pg (28.0-32.0); Mean Corpuscular Volume 80.2 fL (80.0-100.0); Monocytes # (auto) 0.5 10 ^3/uL (0-1.3); Neutrophils # (auto) 4.2 10 ^3/uL (1.6-8.6); Neutrophils % (auto) 53.9 % (37.0-80.0); Nucleated Red Blood Cells % 0.1 %; Red Blood Cells 4.74 10^6/uL (4.0-5.20); Red Cell Distribution Width 16.9 % (11.8-14.3); White Blood Cell 7.8 10^3/uL (4.4-10.8)
[2024-05-27 10:01] LABS: Alanine Aminotransferase 18 U/L (7-40); Alkaline Phosphatase 102 U/L (46-116); Anion Gap 8 (5-15); Aspartate Aminotransferase 15 U/L (13-40); BUN/Creatinine Ratio 14.1 (10.0-20.0); Bilirubin, Total 0.4 mg/dL (0.2-1.0); Blood Urea Nitrogen 11 mg/dL (9-23); Carbon Dioxide 26 mmol/L (20-31); Chloride 106 mmol/L (98-107); Potassium 4.8 mmol/L (3.5-5.1); Sodium 140 mmol/L (136-145); Total Protein 7.9 g/dL (5.7-8.2); Triglycerides 107 mg/dL (< 150)
[2024-05-27 10:26] LABS: Albumin 4.9 g/dL (3.2-4.8); Cholesterol 215 mg/dL (< 200); Glucose 94 mg/dL (74-106); HDL Cholesterol 70 mg/dL (40-59); LDL Cholesterol 135 mg/dL (< 100)
== END | disposition home or self-care (01) ==
LOC: LAB 08:59
PROVIDERS: ATTEND Nurse Practitioner Family
DX: I10 Essential (primary) hypertension (principal); E11.9 Type 2 diabetes mellitus without complications; Z00.01 Encounter for general adult medical examination with abnormal findings
CPT/HCPCS: 36415; 80053; 80061; 83036; 84443; 85025

== ENCOUNTER → 2024-11-12 | Outpatient (CLI) | payer MEDICAID | END | disposition home or self-care (01) | LOC: LAB 10:32 | PROVIDERS: ATTEND Obstetrics & Gynecology | DX: O03.9 Complete or unspecified spontaneous abortion without complication (principal) | CPT/HCPCS: 36415; 84144; 84702 ==

== ENCOUNTER 2024-12-01 15:20 | Emergency (ER) | payer MEDICAID ==
[~2024-12-01] VITALS: Ht 162.6 cm; Wt 78.0 kg
--- NOTE | 2024-12-01 15:39 | ED.PDOC ---
GI ASSESSMENT HPI Comments A 39 YEAR OLD FEMALE PRESENTS TO THE ED WITH COMPLAINT OF NAUSEA/VOMITING. PATIENT REPORTS THAT SHE HAS BEEN EXPERIENCING CONSTANT NAUSEA AND VOMITING OVER THE PAST 3 DAYS AND SHE IS CURRENTLY 8 WEEKS . PATIENT RELAYS THAT DURING HER LAST , SHE WAS DIAGNOSED WITH HYPEREMESIS GRAVIDARUM. PATIENT STATES SHE FOLLOWS UP WITH DR. NGUYEN FOR HER OBGYN APPOINTMENTS. PATIENT NOTES SHE WAS DIAGNOSED WITH A SUBCHORIONIC HEMORRHAGE 2 WEEKS AGO. PATIENT DENIES FEVER, CHILLS, SHORTNESS OF BREATH, CHEST PAIN, ABDOMINAL PAIN, DYSURIA, HEADACHE, OR OTHER COMPLAINTS. NO OTHER SYMPTOMS OR MODIFYING FACTORS AT THIS TIME. PATIENT IS ALERT, ORIENTED X 4, AND HAS STEADY GAIT. Chief Complaint: Nausea/Vomiting Time Seen by MD: 15:37 Reviewed Notes: Nurses Notes, Medications, Allergies Allergies: Coded Allergies: Shellfish Allergy (Verified Allergy, Severe, 02/27/24) Tuna Flavoring Agent (non-screening (Verified Allergy, Severe, anaphylaxis, 02/27/24) Home Meds Active Scripts Ondansetron Odt 4MG Tab (ZOFRAN PO) 4 Mg Tb, 4 MG PO BID, #20 TAB ODT TAB-DISSOLVE IN MOUTH, THEN SWALLOW Prov:TWILA ZEPEDA 12/01/24 Reported Medications Vit W/ Ferrous Fumara ( One Daily) Daily Tab, 1 TAB PO DAILY, #90 TAB 3 Refills 02/27/24 Information Source: Patient Mode of Arrival: Ambulatory Timing: Hours Duration: Since onset Prehospital treatment: None Quality: None Vomitus: Watery Stool: Normal Severity: Moderate Recent: None Recent Hx of: Current Pain Location: None Modifying Factors: Nothing Associated sign and symptoms: Nausea, Vomiting Past Medical History PAST MEDICAL HISTORY: Denies Surgical History: Denies all surgeries Family History Family History: Reviewed,noncontributory to illness Social History Smoker: Non-Smoker Alcohol: Denies ETOH Use Drugs: Denies Drug Use Lives In: Home Constitutional: denies: chills, diaphoresis, fatigue, fever, malaise, sweats, weakness, others EENTM: denies: blurred vision, double vision, ear bleeding, ear discharge, ear drainage, ear pain, ear ringing, eye pain, eye redness, hearing loss, mouth pain, mouth swelling, nasal discharge, nose bleeding, nose congestion, nose pain, photophobia, tearing, throat pain, throat swelling, voice changes, others Respiratory: denies: cough, hemoptysis, orthopnea, SOB at rest, shortness of breath, SOB with excertion, stridor, wheezing, others Cardiovascular: denies: chest pain, dizzy spells, diaphoresis, Dyspnea on exertion, edema, irregular heart beat, left arm pain, lightheadedness, palpitations, PND, syncope, others Gastrointestinal: reports: nausea, vomiting; denies: abdomen distended, abdomin al pain, blood streaked bowels, constipated, diarrhea, dysphagia, difficulty swallowing, hematemesis, melena, poor appetite, poor fluid intake, rectal bleeding, rectal pain, others Genitourinary: reports: pain (PELVIC ), ; denies: abnormal vagina bleeding, burning, dyspareunia, dysuria, flank pain, frequency, hematuria, incontinence, vagina discharge, urgency, others Neurological: denies: dizziness, fainting, headache, left sided numbness, left sided weakness, numbness, paresthesia, pre-existing deficit, right sided numbness, right sided weakness, seizure, speech problems, tingling, tremors, weakness, others Musculoskeletal: denies: back pain, gout, joint pain, joint swelling, muscle pain, muscle stiffness, neck pain, others Integumetry: denies: bruises, change in color, change in hair/nails, dryness, laceration, lesions, lumps, rash, wounds, others Allergic/Immunocompromised: denies: Difficulty Healing, Frequent Infections, Hives, Itching, others Hematologic/Lymphatic: denies: anemia, blood clots, easy bleeding, easy bruising, swollen glands, others Endocrine: denies: excessive hunger, excessive sweating, excessive thirst, excessive urination, flushing, intolerance to cold, intolerance to heat, unexplained weight gain, unexplained weight loss, others Psychiatric: denies: anxiety, bipolar disorder, depression, hopeless, panic disorder, schizophrenia, sleepless, suicidal, others All Other Systems: Reviewed and Negative Physical Exam General Appearance: No Apparent Distress, Normal HEENT: Normal ENT Inspection, PERRL/EOMI, Pharynx Normal, TMs Normal Neck: Full Range of Motion, Non-Tender, Normal, Normal Inspection Respiratory: Chest Non-Tender, Lungs Clear, No Accessory Muscle Use, No Respiratory Distress, Normal Breath Sounds Cardiovascular: No Edema, No JVD, No Murmur, No Gallop, Normal Peripheral Pulses, Regular Rate/Rhythm Breast Exam: Deferred Gastrointestinal: No Organomegaly, Non Tender, No Pulsatile Mass, Normal Bowel Sounds, Soft Genitalia: Deferred Pelvic: Normal External Exam, Tender Uterus, Other (MILD TENDERNESS PELVIC, NO GUARDING AND REBOUND TENDERNESS. ) Rectal: Deferred Extremities: No calf tenderness, Normal capillary refill, Normal inspection, Normal range of motion, Non-tender, No pedal edema Musculoskeletal : Apperance: Normal Neurologic: Alert, durability engineer II-XII nml as Tested, No Motor Deficits, Normal Affect, Normal Mood, No Sensory Deficits Cerebellar Function: Normal Reflexes: Normal Skin: Dry, Normal Color, Warm Peripheral Pulses: 2+ carotid (R), 2+ carotid (L) Lymphatic: No Adenopathy Was a procedure done? Was a procedure done?: No GI differential Dx Differential Diagnosis: UTI, , Anemia Other Differential Diagnosis HYPEREMESIS GRAVIDARUM X-Ray, Labs, Meds, VS Vital Signs Date Time Temp Pulse Resp B/P (MAP) Pulse Ox O2 Delivery O2 Flow Rate FiO2 12/01/24 15:22 98.4 107 20 112/73 97 98.4 Lab Test 12/01/24 15:55 12/01/24 15:32 Range/Units White Blood Count 9.8 4.4-10.8 10^3/uL Red Blood Count 4.98 4.0-5.20 10^6/uL Hemoglobin 13.7 12.2-16.2 g/dL Hematocrit 40.8 36.0-46.0 % Mean Corpuscular Volume 81.9 80.0-100.0 fL Mean Corpuscular Hemoglobin 27.6 L 28.0-32.0 pg Mean Corpuscular Hemoglobin Concent 33.7 32.0-36.0 g/dL Red Cell Distribution Width 14.5 H 11.8-14.3 % Platelet Count 274 140-450 10^3/uL Mean Platelet Volume 9.3 6.9-10.8 fL Neutrophils (%) (Auto) 72.0 37.0-80.0 % Lymphocytes (%) (Auto) 21.5 10.0-50.0 % Monocytes (%) (Auto) 6.0 0.0-12.0 % Eosinophils (%) (Auto) 0.2 0.0-7.0 % Basophils (%) (Auto) 0.3 0.0-2.0 % Neutrophils # (Auto) 7.1 1.6-8.6 10 ^3/uL Lymphocytes # (Auto) 2.1 0.4-5.4 10 ^3/uL Monocytes # (Auto) 0.6 0-1.3 10 ^3/uL Eosinophils # (Auto) 0 0-0.8 10 ^3/uL Basophils # (Auto) 0 0-0.2 10 ^3/uL Nucleated Red Blood Cells 0.1 % Sodium Level 138 136-145 mmol/L Potassium Level 3.9 3.5-5.1 mmol/L Chloride Level 106 98-107 mmol/L Carbon Dioxide Level 20 20-31 mmol/L Anion Gap 12 5-15 Blood Urea Nitrogen 10 9-23 mg/dL Creatinine 0.66 0.550-1.02 mg/dL Glomerular Filtration Rate Calc 115 >90 mL/min BUN/Creatinine Ratio 15.2 10.0-20.0 Serum Glucose 95 74-106 mg/dL Calcium Level 9.4 8.7-10.4 mg/dL Beta HCG, Quantitative 734200.1 H 1.5-4.2 mIU/mL Urine Color Yellow Yellow Urine Clarity Turbid H Clear Urine pH 5.5 5.0-9.0 Urine Specific [place] 1.029 1.001-1.035 Urine Protein Trace H Negative Urine Ketones Trace Negative Urine Blood Negative Negative /uL Urine Nitrite Negative Negative Urine Bilirubin Negative Negative Urine Urobilinogen Normal Negative mg/dL Urine Leukocyte Esterase 3+ Negative /uL Urine RBC 6 0 - 4 /hpf Urine Microscopic WBC 23 H 0-5 /HPF Urine Squamous Epithelial Cells Few <5 /hpf Urine Calcium Oxalate Crystals Few None Seen Urine Bacteria Few H None Seen /hpf Urine Mucus Few None Seen Urine Glucose Normal Normal mg/dL Current Medications Medications (Trade) Dose Ordered Sig/Sukhdev Route Start Time Stop Time Status Last Admin Sodium Chloride 1,000 ml @ 1,000 mls/hr Q1H ONCE IV 12/01/24 15:45 12/01/24 16:44 DC 12/01/24 16:[address] [address] Ph: [phone] DIAGNOSTIC IMAGING Diagnostic Imaging Report : [id number] Signed PATIENT: NETTA SESAY ACCT: [id number] UNIT: [id number] : 1985 LOC: ER ROOM / BED: / AGE / SEX: 39 / F ADM STATUS: REG ER SERVICE 1606 ORDERING PHYSICIAN: TWILA ZEPEDA PROCEDURE(s): OB4US - OB ULTRASOUND COMP LESS 14WKS REASON: PELVIC CRAMP, 18 WEEKS ORDER NUMBER(s): [id number], ACCESSION NUMBER(s): [id number] EXAM: US OB ULTRASOUND COMP LESS 14WKS CLINICAL HISTORY: PELVIC CRAMP, 18 WEEKS COMPARISON: None TECHNIQUE: Grayscale, color-flow Doppler, and spectral Doppler ultrasound of the pelvis is performed by transabdominal technique. Findings: Single live intrauterine with gestational sac, yolk sac and embryo visualized. heart rate of 160 bpm. Estimated gestational age 8 weeks 1 day based on parameters including crown-rump length of 1.6 cm. Uterus measures 10.3 x 7.2 x 7.9 cm in size. Cervical os appears closed. 0.8 x 1.6 x 1.5 cm subchorionic hemorrhage. Right ovary not visualized. Left ovary measures 2.1 x 1.8 x 1.7 cm. Normal ovarian color Doppler flow bilaterally. No free fluid within the cul-de-sac. Impression: 1. Single live intrauterine with heart rate of 160 bpm. Estimated gestational age 8 weeks 1 day with estimated date of confinement 07/12/2025. 2. Small subchorionic hemorrhage. Cervical os appears closed 3. Left ovary is grossly unremarkable. ATED BY: ANAI NOLEN DO DICTATED DATE/TIME: 12/01/241650 SIGNED BY: ANAI NOLEN DO SIGNED DATE/TIME: 12/01/241650 CC: X-Ray, Labs, Meds, VS Comment EXTERNAL MEDICAL RECORDS REVIEWED: [NONE] INDEPENDENT HISTORIANS: [NONE] SOCIAL DETERMINANTS OF HEALTH: [NONE] LABS ORDERED: CBC, BMP, UA, BHCG QUANT REVIEWED AND INTERPRETED RESULTS: NONE IMAGING ORDERED: NONE TREATMENTS ORDERED: NS 1L IV, ZOFRAN 4MG IV, ROCEPHIN 1G IVPB PROCEDURES PERFORMED: NONE CRITICAL CARE TIME: NONE I HAVE DISCUSSED THE PATIENT WITH THE ATTENDING PHYSICIAN, DR. REESE, HE AGREES WITH THE PATIENT'S PLAN OF CARE AND DISPOSITION. BASED ON HISTORY OF PRESENT ILLNESS, AND PHYSICAL EXAM, PATIENT WILL BE DISCHARGED HOME. DISCUSSED PLAN FOR DISCHARGE HOME WITH RX [ZOFRAN 4MG ODT]. MEDICATION WARNINGS GIVEN. SHARED DECISION MAKING: DISCUSSED WITH PATIENT THAT THEIR WORKUP WAS NORMAL. PATIENT INSTRUCTED TO FOLLOW UP WITH PRIMARY CARE PROVIDER IN 1-2 DAYS FOR RE- EVALUATION OF SYMPTOMS. PATIENT VERBALIZES UNDERSTANDING TO RETURN TO ED FOR NEW OR WORSENING SYMPTOMS OR IF FOLLOW UP WITH PCP CANNOT BE OBTAINED. PATIENT FEELS COMFORTABLE GOING HOME AT THIS TIME. ALL QUESTIONS ADDRESSED AT TIME OF DISCHARGE. Images Reviewed?: Images reviewed and evaluated by me Time of 1ST Reevaluation: 17:00 Reevaluation 1ST: Improved Patient Education/Counseling: Diagnosis, Treatment, Need For Follow Up Family Education/Counseling: Diagnosis, Treatment, No Family Present Medical Screening: No EMC Exist At This Time SEPSIS Sepsis Screen Date sepsis recognized/suspect: Dec 01, 2024 Time Sepsis recognized/suspect: 1523 Recent Procedure: No On Antibiotic Therapy: No Respiratory Rate >20: No Heart Rate >90: Yes Temp<36 C (96.8 F) or >38.3 C: No SBP <90 or MAP <65 mmHG: No New Acute Mental Status Change: No Is the patient on CPAP, BIPAP,: No Physician Orders Heplock Iv (12/01/24 ) Ob Ultrasound Comp Less 14wks (12/01/24 16:06) Vital Signs Date Time Temp Pulse Resp B/P (MAP) Pulse Ox O2 Delivery O2 Flow Rate FiO2 12/01/24 15:22 98.4 107 20 112/73 97 98.4 Laboratory Tests Test 12/01/24 15:55 White Blood Count 9.8 10^3/uL (4.4-10.8) Medications Medications Dose Ordered Sig/Sukhdev Route Start Time Stop Time Status Last Admin Dose Admin Sodium Chloride 1,000 ml @ 1,000 mls/hr Q1H ONCE IV 12/01/24 15:45 12/01/24 16:44 DC 12/01/24 16:09 Departure 1 Departure Time of Disposition: 17:00 Impression: Primary Impression: Hyperemesis gravidarum Additional Impressions: First trimester Acute cystitis Qualified Codes: N30.00 - Acute cystitis without hematuria Disposition: HOME / SELF CARE / HOMELESS Condition: Stable Additional Instructions: FOLLOW-UP WITH READING INTERVENTIONIST IN 1 TO 2 DAYS. TAKE MEDICATIONS PRESCRIBED. RETURN TO ED FOR ANY NEW OR WORSENING SYMPTOMS. e-Prescriptions Ondansetron Odt 4MG Tab (ZOFRAN PO) 4 Mg Tb 4 MG PO BID, #20 TAB ODT TAB-DISSOLVE IN MOUTH, THEN SWALLOW Prov: TWILA ZEPEDA 12/01/24 Discharged With: Self Critical Care Note Critical Care Time?: No Stability Stability form required: No Heart Score Heart Score: Heart Score Response (Comments) Value History N/A 0 EKG N/A 0 Age N/A 0 Risk Factors N/A 0 Troponin N/A 0 Total 0 I personally scribed for TWILA ZEPEDA ([email or web address]) on 12/01/24 at 15:39. Electronically submitted by Kyle Fritz ([email or web address]). I personally scribed for TWILA ZEPEDA ([email or web address]) on 12/01/24 at 16:45. Electronically submitted by Kyle Fritz ([email or web address]). I personally scribed for TWILA ZEPEDA ([email or web address]) on 12/01/24 at 16:59. Electronically submitted by Kyle Fritz ([email or web address]). TWILA ZEPEDA Dec 01, 2024 15:39
[2024-12-01] MEDS: ONDANSETRON HCL 4 MG/2 ML VIAL IV ONE (16:09)
[2024-12-01] MEDS: SODIUM CHLORIDE 0.9% 1,000 ML IV ONE (16:09)
[2024-12-01 16:17] LABS: Chloride 106 mmol/L (98-107); Hematocrit 40.8 % (36.0-46.0); Hemoglobin 13.7 g/dL (12.2-16.2); Mean Corpuscular Hemoglobin 27.6 pg (28.0-32.0); Mean Corpuscular Volume 81.9 fL (80.0-100.0); Nucleated Red Blood Cells % 0.1 %; Potassium 3.9 mmol/L (3.5-5.1); Sodium 138 mmol/L (136-145)
[2024-12-01 16:18] LABS: Anion Gap 12 (5-15); Calcium 9.4 mg/dL (8.7-10.4); Carbon Dioxide 20 mmol/L (20-31)
[2024-12-01 16:23] LABS: BUN/Creatinine Ratio 15.2 (10.0-20.0); Blood Urea Nitrogen 10 mg/dL (9-23); Glucose 95 mg/dL (74-106)
[2024-12-01 16:27] LABS: Urine Protein, UAD TRACE (Negative)
[2024-12-01] MEDS: cefTRIAXone SOD 1,000 MG VL IM ONE (16:51)
--- NOTE | 2024-12-01 16:53 | DVH ---
EXAM: US OB ULTRASOUND COMP LESS 14WKS CLINICAL HISTORY: PELVIC CRAMP, 18 WEEKS COMPARISON: None TECHNIQUE: Grayscale, color-flow Doppler, and spectral Doppler ultrasound of the pelvis is performed by transabdominal technique. Findings: Single live intrauterine with gestational sac, yolk sac and embryo visualized. heart rate of 160 bpm. Estimated gestational age 8 weeks 1 day based on parameters including crown-ru mp length of 1.6 cm. Uterus measures 10.3 x 7.2 x 7.9 cm in size. Cervical os appears closed. 0.8 x 1.6 x 1.5 cm subchorionic hemorrhage. Right ovary not visualized. Left ovary measures 2.1 x 1.8 x 1.7 cm. Normal ovarian color Doppler flow bilaterally. No free fluid within the cul-de-sac. Impression: 1. Single live intrauterine with heart rate of 160 bpm. Estimated gestational age 8 w eeks 1 day with estimated date of confinement 07/12/2025. 2. Small subchorionic hemorrhage. Cervical os appears closed 3. Left ovary is grossly unremarkable.
[2024-12-01 16:55] VITALS: BP 112/73; PULSE 107; RESP 20; TEMP 98.4; O2SAT 97
[2024-12-01] MEDS ORDERED: ZOFR4T PO (16:58)
== END 2024-12-01 17:09 | disposition home or self-care (01) ==
LOC: ER 15:20
DX: O21.0 Mild hyperemesis gravidarum (principal); O23.11 Infections of bladder in pregnancy, first trimester; R10.2 Pelvic and perineal pain; Z3A.08 8 weeks gestation of pregnancy
CPT/HCPCS: 36415; 76801; 80048; 81001; 84702; 85025; 96360; 99284; J7030; 96361; 96372; 96374; J0696; J2405

== ENCOUNTER 2025-01-06 11:09 | Outpatient (CLI) | payer MEDICAID ==
[~2025-01-06 11:09] MED LIST changes: +ZOFR4T PO
[2025-01-06 11:52] LABS: Hematocrit 39.6 % (36.0-46.0); Hemoglobin 13.0 g/dL (12.2-16.2); Mean Corpuscular Hemoglobin 27.5 pg (28.0-32.0); Mean Corpuscular Volume 83.4 fL (80.0-100.0); Nucleated Red Blood Cells % 0.0 %
[2025-01-06 12:50] LABS: Thyroid Stimulating Hormone 0.23 uIU/mL (0.55-4.78)
[2025-01-06 13:06] LABS: Beta HCG, Quantitative 80044.8 mIU/mL (1.5-4.2)
[2025-01-06 13:08] LABS: Albumin 4.2 g/dL (3.2-4.8); Alkaline Phosphatase 75 U/L (46-116); Anion Gap 13 (5-15); BUN/Creatinine Ratio 9.7 (10.0-20.0); Calcium 9.1 mg/dL (8.7-10.4); Carbon Dioxide 23 mmol/L (20-31); Chloride 106 mmol/L (98-107); Glucose 94 mg/dL (74-106); Sodium 142 mmol/L (136-145); Total Protein 7.5 g/dL (5.7-8.2)
[2025-01-06 13:09] LABS: Bilirubin, Total 0.4 mg/dL (0.2-1.0)
[2025-01-06 13:11] LABS: Amphetamine Screen, Urine Neg (NEGATIVE); Barbiturate Scree,Urine Neg (NEGATIVE); Benzodiazephine Screen, Urine Neg (NEGATIVE); Blood Urea Nitrogen 6 mg/dL (9-23); Cannabinoid Screen, Urine Neg (NEGATIVE); Cocaine Screen, Urine Neg (NEGATIVE); Opiate Scree,Urine Neg (NEGATIVE); Phencyclidine Screen, Urine Neg (NEGATIVE); Potassium 3.4 mmol/L (3.5-5.1)
[2025-01-06 13:12] LABS: Alanine Aminotransferase < 9 U/L (7-40)
[2025-01-08 05:07] LABS: Chlamydia Trachomatis, NAA Negative (Negative); Neisseria gonorrhoeae, NAA Negative (Negative)
== END 2025-01-06 17:00 | disposition home or self-care (01) ==
LOC: LAB 11:09
DX: O23.40 Unspecified infection of urinary tract in pregnancy, unspecified trimester (principal); N39.0 Urinary tract infection, site not specified; Z11.3 Encounter for screening for infections with a predominantly sexual mode of transmission; Z11.2 Encounter for screening for other bacterial diseases; Z31.430 Encounter of female for testing for genetic disease carrier status for procreative management; Z36.0 Encounter for antenatal screening for chromosomal anomalies; Z3A.00 Weeks of gestation of pregnancy not specified
CPT/HCPCS: 36415; 80053; 80307; 83036; 84403; 84439; 84443; 84702; 85025; 86703; 86762; 86780; 86787; 86850; 86900; 86901; 87902